=== PATIENT | female | born 1980 | race Caucasian/White ===

== ENCOUNTER 2017-05-27 11:07 | Emergency (ER) | payer OTHER, MEDICAID ==
[~2017-05-27] VITALS: Ht 175.3 cm; Wt 108.4 kg
[2017-05-27 11:41] LABS: URINE BILIRUBIN NEGATIVE (Negative); URINE BLOOD NEGATIVE (Negative); URINE CLARITY CLEAR; URINE COLOR YELLOW; URINE GLUCOSE-RANDOM NEGATIVE (Negative); URINE KETONES NEGATIVE (Negative); URINE LEUKOCYTES-REFLEX NEGATIVE (Negative); URINE NITRITE-REFLEX NEGATIVE (Negative); URINE PROTEIN NEGATIVE (Negative); URINE UROBILINOGEN 0.2 E.U./dl (0.2-1.0)
[2017-05-27 11:52] LABS: AMP/METHAMP Negative (Negative); BARBITURATES Negative (Negative); BENZODIAZEPINES Negative (Negative); COCAINE Negative (Negative); METHADONE Negative (Negative); OPIATES POSITIVE (Negative); PCP Negative (Negative); THC Negative (Negative)
[2017-05-27] MEDS ORDERED: ROBAXIN 750 MG750 M1 PO (11:56)
[2017-05-27] MEDS ORDERED: NAPROSYN500 MG PO (11:56)
[2017-05-27] MEDS ORDERED: MEDROLDOSEPACK PO (11:56)
[2017-05-27 12:08] VITALS: BP 141/99
== END 2017-05-27 12:10 | disposition home or self-care (01) ==
LOC: M.ERS 11:07
PROVIDERS: Physician Assistant
DX: M54.5 Low back pain (principal); I10 Essential (primary) hypertension

== ENCOUNTER 2018-03-20 08:43 | Emergency (ER) | payer OTHER ==
[~2018-03-20] VITALS: Ht 177.8 cm; Wt 109.4 kg
[~2018-03-20 08:43] MED LIST: MEDROLDOSEPACK PO; NAPROSYN500 MG PO; ROBAXIN 750 MG750 M1 PO
[2018-03-20] MEDS ORDERED: ZPAK PO (09:21)
[2018-03-20] MEDS ORDERED: PREDNISONE 20 M20 M1 PO (09:21)
[2018-03-20 09:29] VITALS: BP 146/108
[2018-03-20 09:31] LABS: INFLUENZA A ANTIGEN None Detected (None Detect); INFLUENZA B ANTIGEN None Detected (None Detect)
== END 2018-03-20 09:31 | disposition home or self-care (01) ==
LOC: M.ERS 08:43
PROVIDERS: Family Medicine
DX: J40 Bronchitis, not specified as acute or chronic (principal); I10 Essential (primary) hypertension; Z98.890 Other specified postprocedural states

== ENCOUNTER 2019-05-10 11:18 | Emergency (ER) | payer OTHER ==
[~2019-05-10] VITALS: Ht 177.8 cm; Wt 113.4 kg
[~2019-05-10 11:18] MED LIST changes: +FLEXERIL PO; +HYDROCODON-ACE1 EAC8 PO; +PREDNISONE 20 M20 M1 PO; +PRINIVIL10 MG PO; +ZPAK PO
[2019-05-10] MEDS ORDERED: TORADOL 10 MG T10 MG PO (13:31)
[2019-05-10] MEDS ORDERED: TYLENOL WITH CO1 TA1 PO (13:31)
[2019-05-10] MEDS ORDERED: CYCLOBENZAPRINE5 MG PO (13:31)
[2019-05-10 14:16] VITALS: BP 149/98
== END 2019-05-10 14:17 | disposition home or self-care (01) ==
LOC: M.ERS 11:18
DX: M62.830 Muscle spasm of back (principal); I10 Essential (primary) hypertension; Z98.890 Other specified postprocedural states; Z90.89 Acquired absence of other organs

== ENCOUNTER 2019-09-26 16:56 | Emergency (ER) | payer OTHER ==
[~2019-09-26] VITALS: Ht 177.8 cm; Wt 111.6 kg
[~2019-09-26 16:56] MED LIST changes: +CYCLOBENZAPRINE5 MG PO; +TORADOL 10 MG T10 MG PO; +TYLENOL WITH CO1 TA1 PO
[2019-09-26 17:23] LABS: URINE BLOOD NEGATIVE (Negative); URINE CLARITY SL CLOUDY; URINE COLOR YELLOW; URINE GLUCOSE-RANDOM NEGATIVE (Negative); URINE KETONES TRACE (Negative); URINE NITRITE-REFLEX NEGATIVE (Negative); URINE PROTEIN 1+ (Negative); URINE SPECIFIC GRAVITY >= 1.030 (1.005-1.030); URINE UROBILINOGEN 0.2 E.U./dl (0.2-1.0)
[2019-09-26 17:24] LABS: ICTOTEST (BILI CONFIRMATORY) Negative (Negative); URINE BILIRUBIN 1+ (Negative); URINE LEUKOCYTES-REFLEX 2+ (Negative)
[2019-09-26 17:32] LABS: MUCUS 4-6 Moderate strn/LPF (None Seen); SQUAMOUS >10 Many /LPF (0-3)
[2019-09-26 17:33] LABS: URIC ACID CRYSTALS 0-3 Few /LPF (None Seen)
[2019-09-26 17:34] LABS: URINE RBC 0-2 Rare /HPF (0-2)
[2019-09-26 17:35] LABS: AMORPHOUS URATES Few /LPF (None Seen); HYALINE CASTS 0-3 Few /LPF (None Seen)
[2019-09-26] MEDS ORDERED: NORCO 5-325 TA1 EAC1 PO (18:49)
[2019-09-26] MEDS ORDERED: PYRIDIUM100 M1 PO (18:49)
[2019-09-26] MEDS ORDERED: FLAGYL500 M1 PO (18:49)
[2019-09-26] MEDS ORDERED: CEFDINIR300 MG PO (18:49)
[2019-09-26 18:59] VITALS: BP 159/100
== END 2019-09-26 19:00 | disposition home or self-care (01) ==
LOC: M.ERS 16:56
PROVIDERS: Nurse Practitioner Family
DX: N39.0 Urinary tract infection, site not specified (principal); N76.0 Acute vaginitis; I10 Essential (primary) hypertension; Z90.89 Acquired absence of other organs; Z79.899 Other long term (current) drug therapy

== ENCOUNTER 2020-07-12 22:07 | Emergency (ER) | payer OTHER ==
[~2020-07-12] VITALS: Ht 177.8 cm; Wt 97.5 kg
[~2020-07-12 22:07] MED LIST changes: +CEFDINIR300 MG PO; +FLAGYL500 M1 PO; +NORCO 5-325 TA1 EAC1 PO; +PYRIDIUM100 M1 PO
[2020-07-12] MEDS ORDERED: TORADOL 10 MG T10 MG PO (23:05)
[2020-07-12] MEDS ORDERED: CYCLOBENZAPRINE5 MG PO (23:05)
[2020-07-12 23:15] VITALS: BP 118/85
== END 2020-07-12 23:15 | disposition home or self-care (01) ==
LOC: M.ERS 22:07
DX: S39.012A Strain of muscle, fascia and tendon of lower back, initial encounter (principal); M54.6 Pain in thoracic spine; I10 Essential (primary) hypertension; Z90.89 Acquired absence of other organs; Z98.890 Other specified postprocedural states; Z79.899 Other long term (current) drug therapy; X50.0XXA Overexertion from strenuous movement or load, initial encounter; Y93.89 Activity, other specified; Y92.511 Restaurant or cafe as the place of occurrence of the external cause; Y99.8 Other external cause status

== ENCOUNTER 2020-12-04 15:27 | Emergency (ER) | payer OTHER ==
[~2020-12-04] VITALS: Ht 177.8 cm; Wt 88.9 kg
[2020-12-04] MEDS ORDERED: MEDROLDOSEPACK PO (16:43)
[2020-12-04] MEDS ORDERED: FLEXERIL PO (16:43)
[2020-12-04] MEDS ORDERED: NAPROSYN500 MG PO (16:43)
[2020-12-04 16:53] VITALS: BP 134/72
== END 2020-12-04 16:54 | disposition home or self-care (01) ==
LOC: M.ERS 15:27
DX: M54.5 Low back pain (principal); M25.561 Pain in right knee; G89.29 Other chronic pain; I10 Essential (primary) hypertension; Z98.890 Other specified postprocedural states; Z90.89 Acquired absence of other organs